=== PATIENT | male | born 1935 | race Caucasian/White ===

== ENCOUNTER 2017-02-04 17:54 | Observation (INO) | payer OTHER, MEDICARE ==
[~2017-02-04] VITALS: Ht 175.3 cm; Wt 91.0 kg
[2017-02-04] VITALS (7 sets, daily range): BP systolic 142–176; BP diastolic 75–89; PULSE 50–54; RESP 16–20; TEMP 98–98.6; O2SAT 95–98
[~2017-02-04 17:54] MED LIST: ASPI1TAB69 PO; CO Q10CA PO; FENO160T PO; HYDR-3533 PO; MEDR4PAK PO; OMEP20TA PO; OXYB5TAB PO; OXYB5TAB10 PO; VALS1TAB64 PO; ZOFR4TAB3 SL
[2017-02-04] MEDS ORDERED: ASPI81CH CHEW (18:08)
[2017-02-04] MEDS ORDERED: ASPIRIN 81 MG CHEW TAB PO ONE (18:30)
[2017-02-04] MEDS ORDERED: SODIUM CHLORIDE 0.9% FLUSH 10 ML FLUSH IVF PRN (18:30)
--- NOTE | 2017-02-04 18:39 | PD ---
HPI Chief Complaint: Chest Pain Time Seen by Provider: 18:16 Travel History International Travel<30 days: No Contact w/Intl Traveler<30days: No Traveled to known affect area: No History of Present Illness HPI 81-year-old male with history of hypertension, hypercholesterolemia, diabetes, here for evaluation of chest pain and abdominal distention. Symptoms started today. He has been having intermittent substernal chest pressure throughout the day today. There are no modifying factors to this pressure. Currently he does not have chest pressure. He also feels as though his abdomen has been distended throughout the day today. No real abdominal pain. History of cholecystectomy and splenectomy. No known history of cardiac disease. There is family history of cardiac disease in his mother and father. He is a nonsmoker. No paresthesias or motor deficits. No hemoptysis. No history of DVT or PE. No dyspnea. Recently had upper respiratory symptoms this past month , was started on antibiotic without improvement. Was thought to have allergies , however allergy testing showed a negative. He does have a pulmonary nodule and is being followed with a cherry sorter for this. No nausea or vomiting. No fevers or chills. He took an 81 mg aspirin today. PFSH Past Medical History Hx Anticoagulant Therapy: Yes (ASA 81mg) High Cholesterol: Yes Diabetes: No Diminished Hearing: No GERD: Yes Hypertension: Yes Immunizations Current: Yes Past Surgical History Cholecystectomy: Yes Other Surgery: Yes (SPLENECTOMY 1968) Social History Alcohol Use: Yes ([facility]) Tobacco Use: No Substance Use: No Allergies-Medications (Allergen,Severity, Reaction): Coded Allergies: ibuprofen (Unverified Allergy, Mild, 02/04/17) Reported Meds & Prescriptions Reported Meds & Active Scripts Active Reported Aspirin 81 Mg Chew 81 Mg CHEW DAILY Co Q 10 (Coenzyme Q10 (Ubidecarenone)) 10 Mg Cap 1 PO BID Oxybutynin ER 24 HR (Oxybutynin Chloride) 5 Mg Tab 5 Mg PO DAILY Fenofibrate 160 Mg Tab 160 Mg PO DAILY Valsartan 80 Mg Tab 80 Mg PO BID Review of Systems Except as stated in HPI: all other systems reviewed are Neg Physical Exam Narrative GENERAL: Well-developed, well-nourished, comfortable, no apparent distress. SKIN: Focused skin assessment warm/dry. HEAD: Atraumatic. Normocephalic. EYES: Pupils equal and round. No scleral icterus. No injection or drainage. ENT: Mucous membranes pink and moist. NECK: Trachea midline. No JVD. CARDIOVASCULAR: Regular rate and rhythm. Distal pulses brisk and equal bilaterally. RESPIRATORY: No accessory muscle use. Clear to auscultation. Breath sounds equal bilaterally. GASTROINTESTINAL: Abdomen soft, non-tender, mildly distended. Normal bowel sounds. MUSCULOSKELETAL: No obvious deformities. No clubbing. No cyanosis. No edema. NEUROLOGICAL: Awake and alert. No obvious cranial nerve deficits. Motor grossly within normal limits. Normal speech. PSYCHIATRIC: Appropriate mood and affect; insight and judgment normal. Data Data Last Documented VS Vital Signs Date Time Temp Pulse Resp B/P (MAP) Pulse Ox O2 Delivery O2 Flow Rate FiO2 02/04/17 20:48 51 18 152/75 (100) 95 Room Air 02/04/17 19:15 98.6 Orders Orders Ckmb (Isoenzyme) Profile (02/04/17 18:25) Complete Blood Count With Diff (02/04/17 18:25) Comprehensive Metabolic Panel (02/04/17 18:25) Magnesium (Mg) (02/04/17 18:25) Prothrombin Time / Inr (Pt) (02/04/17 18:25) Act Partial Throm Time (Ptt) (02/04/17 18:25) Troponin I (02/04/17 18:25) Chest, Single Ap (02/04/17 18:25) Ecg Monitoring (02/04/17 18:25) Iv Access Insert/Monitor (02/04/17 18:25) Oximetry (02/04/17 18:25) Aspirin Chew (Aspirin Chew) (02/04/17 18:30) Sodium Chloride 0.9% Flush (Ns Flush) (02/04/17 18:30) Ct Abd/Pel W Iv Contrast(Rout) (02/04/17 ) Lipase (02/04/17 18:25) Nitroglycerin Sl (Nitrostat Sl) (02/04/17 19:15) Iohexol 350 Inj (Omnipaque 350 Inj) (02/04/17 19:45) Electrocardiogram (02/04/17 18:07) Electrocardiogram (02/04/17 19:27) Admit Order (Ed Use Only) (02/04/17 21:14) Activity Bed Rest With Brp (02/04/17 21:14) Vital Signs (Adult) Q4H (02/04/17 21:14) Cardiac Rhythm .As Directed (02/04/17 21:14) Notify Dr: Other .PRN (02/04/17 21:14) Notify DrCris Parameters (02/04/17 21:14) Resp Oxygen Nasal Cannula (02/04/17 ) Ckmb (Isoenzyme) Profile (02/04/17 21:14) Ckmb (Isoenzyme) Profile (02/05/17 00:14) Troponin I (02/04/17 21:14) Troponin I (02/05/17 00:14) Electrocardiogram (02/04/17 21:14) Electrocardiogram (02/05/17 00:14) ^ Obtain (02/04/17 21:14) Sodium Chloride 0.9% Flush (Ns Flush) (02/04/17 21:15) Rotary Cutter Feeder / Telemetry [id number].Q8H (02/04/17 21:14) Labs Laboratory Tests Test 02/04/17 18:30 White Blood Count 8.9 TH/MM3 Red Blood Count 4.97 MIL/MM3 Hemoglobin 15.6 GM/DL Hematocrit 46.0 % Mean Corpuscular Volume 92.5 FL Mean Corpuscular Hemoglobin 31.3 PG Mean Corpuscular Hemoglobin Concent 33.8 % Red Cell Distribution Width 13.6 % Platelet Count 349 TH/MM3 Mean Platelet Volume 8.8 FL Neutrophils (%) (Auto) 45.0 % Lymphocytes (%) (Auto) 33.7 % Monocytes (%) (Auto) 16.2 % Eosinophils (%) (Auto) 3.6 % Basophils (%) (Auto) 1.5 % Neutrophils # (Auto) 4.1 TH/MM3 Lymphocytes # (Auto) 3.0 TH/MM3 Monocytes # (Auto) 1.4 TH/MM3 Eosinophils # (Auto) 0.3 TH/MM3 Basophils # (Auto) 0.1 TH/MM3 CBC Comment DIFF FINAL Differential Comment Prothrombin Time 11.0 SEC Prothromb Time International Ratio 1.0 RATIO Activated Partial Thromboplast Time 25.0 SEC Blood Urea Nitrogen 19 MG/DL Creatinine 1.60 MG/DL Random Glucose 100 MG/DL Total Protein 7.7 GM/DL Albumin 3.6 GM/DL Calcium Level 8.9 MG/DL Magnesium Level 2.0 MG/DL Alkaline Phosphatase 55 U/L Aspartate Amino Transf (AST/SGOT) 21 U/L Alanine Aminotransferase (ALT/SGPT) 24 U/L Total Bilirubin 0.4 MG/DL Sodium Level 142 MEQ/L Potassium Level 3.9 MEQ/L Chloride Level 107 MEQ/L Carbon Dioxide Level 25.9 MEQ/L Anion Gap 9 MEQ/L Estimat Glomerular Filtration Rate 42 ML/MIN Total Creatine Kinase 91 U/L Troponin I 0.06 NG/ML Lipase 92 U/L MDM Medical Decision Making Medical Screen Exam Complete: Yes Emergency Medical Condition: Yes Interpretation(s) EKG: Sinus, rate 52, leftward axis, normal intervals, no acute ischemic abnormality. Differential Diagnosis ACS, pneumothorax, pericarditis, PE, pneumonia, pancreatitis, hepatobiliary disease, gastritis, peptic ulcer disease, bowel obstruction Narrative Course Initial vital signs show heart rate 52, blood pressure 176/81, pulse ox 97% on room air, oral temp 98F. CBC is unremarkable. CMP is remarkable for BUN 19, creatinine 1.6, GFR 42, otherwise unremarkable. Lipase is 92. Troponin is 0.06. Chest x-ray: CONCLUSION: 1. Cardiomegaly. 2. No acute focal pulmonary infiltrate or pulmonary vascular congestion. CT abdomen pelvis: CONCLUSION: 1. Infrarenal abdominal aortic aneurysm measuring 2.9 cm Transverse x 2.6 cm AP with eccentric mural thrombus. 2. Small hiatal hernia. 3. Fatty liver. 4. Multiple bilateral renal cysts. 5. Uncomplicated colonic diverticulosis. 6. Mildly enlarged prostate. 7. Multiple non-calcified nodules within the visualized lower lobes measuring 7 mm each on the right and 8 mm on the left. Outpatient CT of the chest would be helpful for further characterization of these indeterminate nodules. 8. Scattered interstitial fibrosis of the visualized lung bases. 9. Mild degenerative changes involving the thoracolumbar spine. The patient has not had any chest pain while in the emergency department. The patient and the patient's family were made aware of all findings and provided a copy of the CT abdomen pelvis report. He has several risk factors for cardiac disease. He will be admitted for further cardiac evaluation. Case discussed with hospitalist Dr. Benitez who will admit the patient to her service to the chest pain center. After admitting the patient he tells me that he has been seen by switch foreman Dr. Sherman in the past. Diagnosis Primary Impression: Chest pain Qualified Codes: R07.9 - Chest pain, unspecified Additional Impressions: AAA (abdominal aortic aneurysm) Qualified Codes: I71.4 - Abdominal aortic aneurysm, without rupture Pulmonary nodules Renal cyst Admitting Information Admitting Physician Requests: Jake Pagan MD Feb 04, 2017 18:39
[2017-02-04 18:46] LABS: AUTOMATED NEUTROPHIL # 4.1 TH/MM3 (1.8-7.7); BASOPHIL # 0.1 TH/MM3 (0-0.2); BASOPHIL % 1.5 % (0.0-2.0); EOSINOPHIL # 0.3 TH/MM3 (0-0.4); EOSINOPHIL % 3.6 % (0.0-4.0); HEMO FLAGS DIFF FINAL; LYMPH % 33.7 % (9.0-44.0); MEAN CELL VOLUME 92.5 FL (80.0-100.0); MEAN CORPUSCULAR HEMOGLOBIN 31.3 PG (27.0-34.0); MEAN CORPUSCULAR HGB CONC 33.8 % (32.0-36.0); MONO % 16.2 % (0.0-8.0); PLATELET COUNT 349 TH/MM3 (150-450); RED BLOOD COUNT 4.97 MIL/MM3 (4.50-5.90); RED CELL DISTRIBUTION WIDTH 13.6 % (11.6-17.2); WHITE BLOOD COUNT 8.9 TH/MM3 (4.0-11.0)
[2017-02-04 18:55] LABS: CHLORIDE 107 MEQ/L (98-107); POTASSIUM 3.9 MEQ/L (3.5-5.1); SODIUM (NA) 142 MEQ/L (136-145)
[2017-02-04 18:59] LABS: ANION GAP 9 MEQ/L (5-15); BICARBONATE 25.9 MEQ/L (21.0-32.0); BLOOD UREA NITROGEN 19 MG/DL (7-18)
[2017-02-04 19:02] LABS: ALT (GPT) 24 U/L (12-78); AST (GOT) 21 U/L (15-37); GLOMERULAR FILTRATION RATE 42 ML/MIN (>89)
[2017-02-04 19:03] LABS: TOTAL BILIRUBIN ADULT 0.4 MG/DL (0.2-1.0)
[2017-02-04 19:05] LABS: ALKALINE PHOSPHATASE 55 U/L (45-117)
[2017-02-04 19:08] LABS: CREATINE KINASE 91 U/L (39-308)
[2017-02-04] MEDS: NITROGLYCERIN 0.4 MG SL 25 TABS/BTL SL SCH ×3 (19:19→19:25)
--- NOTE | 2017-02-04 19:28 | RADRPT ---
EXAM DATE/TIME: 02/04/2017 19:00 [facility] COMPARISON: No previous studies available for comparison. INDICATIONS : Chest pain today MEDICAL HISTORY : None. SURGICAL HISTORY : None. ENCOUNTER: Initial ACUITY: 1 day PAIN SCORE: 4/10 LOCATION: Bilateral chest FINDINGS: The heart is enlarged. The pulmonary vascular pattern is normal. The lungs are clear. CONCLUSION: 1. Cardiomegaly. 2. No acute focal pulmonary infiltrate or pulmonary vascular congestion. Bravo Thompson MD on February 04, 2017 at 19:22 Board Certified Radiologist. This report was verified electronically.
[2017-02-04] MEDS ORDERED: IOHEXOL 350 MG/ML 10 ML VIAL (for RAD DIAG) IVCONTRAST ONE (19:45)
--- NOTE | 2017-02-04 20:35 | RADRPT ---
EXAM DATE/TIME: 02/04/2017 19:45 [facility] COMPARISON: No previous studies available for comparison. INDICATIONS : Chest pressure with abdominal distention. IV CONTRAST: 75 cc Omnipaque 350 (iohexol) IV ORAL CONTRAST: No oral contrast ingested. RADIATION DOSE: 18.69 CTDIvol (mGy) MEDICAL HISTORY : Hypertension. Hypercholesterolemia. Gastroesophageal reflux disease. Anticoagulant therapy. SURGICAL HISTORY : Cholecystectomy. Splenectomy. ENCOUNTER: Initial ACUITY: 1 day PAIN SCALE: 4/10 LOCATION: Abdomen TECHNIQUE: Volumetric scanning of the abdomen and pelvis was performed. Using automated exposure control and ad justment of the mA and/or kV according to patient size, radiation dose was kept as low as reasonably achievable to obtain optimal diagnostic quality images. DICOM format image data is available electro nically for review and comparison. FINDINGS: There are two 7 mm noncalcified nodules within the right lower lobe and one 8 mm noncalcified nodule within the left lower lobe. These are indeterminate. Outpatient CT of the chest would be helpful fo r further characterization of these findings. Scattered interstitial fibrosis is noted within the vi sualized lung bases. There is fatty infiltration of the liver. No focal hepatic mass is noted. No biliary ductal dilatation is noted. The gallbladder has been resected. The patient is status-post s plenectomy. The pancreas is normal. The adrenal glands are normal bilaterally. There are multiple cysts within both kidneys with the largest arising from the lower pole of the left kidney measuring 3 .4 cm. No hydronephrosis or solid renal mass is noted on either side. No calcified renal stone is n oted. Uncomplicated colonic diverticulosis is noted. There is no acute diverticulitis. No bowel ob struction is noted. There is an infrarenal abdominal aortic aneurysm measuring 2.9 cm transverse x 2 .6 cm AP with eccentric mural thrombus. The inferior vena cava is normal. There is no paraaortic he morrhage. No mesenteric lymphadenopathy. No ascites is noted. The urinary bladder is unremarkable. The prostate gland is prominent in size. Degenerative changes are noted throughout the thorac olumbar spine. A small hiatal hernia is noted. CONCLUSION: 1. Infrarenal abdominal aortic aneurysm measuring 2.9 cm Transverse x 2.6 cm AP with eccentric mural thrombus. 2. Small hiatal hernia. 3. Fatty liver. 4. Multiple bilateral renal cysts. 5. Uncomplicated colonic diverticulosis. 6. Mildly enlarged prostate. 7. Multiple non-calcified nodules within the visualized lower lobes measuring 7 mm each on the right and 8 mm on the left. Outpatient CT of the chest would be helpful for further characterization of th jyothi indeterminate nodules. 8. Scattered interstitial fibrosis of the visualized lung bases. 9. Mild degenerative changes involving the thoracolumbar spine. Bravo Thompson MD on February 04, 2017 at 20:03 Board Certified Radiologist. This report was verified electronically.
[2017-02-04] MEDS ORDERED: SODIUM CHLORIDE 0.9% FLUSH 10 ML FLUSH IV FLUSH PRN (21:15)
[2017-02-04] MEDS ORDERED: REGADENOSON INJ 0.4 MG/5 ML SYR IV ONE (21:17)
[2017-02-05] VITALS (12 sets, daily range): BP systolic 139–150; BP diastolic 70–89; PULSE 51–60; RESP 18–19; TEMP 97.2–97.9; O2SAT 94–98
[2017-02-05] MEDS ORDERED: LACTULOSE SYRUP 20 GM/30 ML CUP PO PRN (08:15)
[2017-02-05] MEDS ORDERED: BISACODYL 10 MG SUPP RECTAL PRN (08:15)
[2017-02-05] MEDS ORDERED: NALOXONE HCL 0.4 MG/ML AMP IV PRN (08:15)
[2017-02-05] MEDS ORDERED: ACETAMINOPHEN/HYDROcodone 325 MG/5 MG TAB PO PRN (08:15)
[2017-02-05] MEDS ORDERED: ACETAMINOPHEN 325 MG TAB PO PRN ×2 (08:15)
[2017-02-05] MEDS ORDERED: SENNOSIDES 8.6 MG TAB PO PRN (08:15)
[2017-02-05] MEDS ORDERED: MORPHINE SULFATE 4 MG/ML INJ IV PRN (08:15)
[2017-02-05] MEDS ORDERED: ONDANSETRON HCL 4 MG/2 ML VIAL IVP PRN (08:15)
[2017-02-05] MEDS ORDERED: ACETAMINOPHEN/HYDROcodone 325 MG/7.5 MG TAB PO PRN (08:15)
[2017-02-05] MEDS ORDERED: hydrALAZINE HCL 20 MG/ML VIAL IV PRN (09:00)
[2017-02-05] MEDS ORDERED: cloNIDine HCL 0.1 MG TAB PO PRN (09:00)
--- NOTE | 2017-02-05 09:09 | HHI.HP ---
HPI Service [facility] Primary Care Physician Dusty Almanza MD Admission Diagnosis chest pain Diagnoses: Chief Complaint: Chest pressure Travel History International Travel<30 Days: No Contact w/Intl Traveler <30 Da: No Traveled to Known Affected Are: No History of Present Illness This is a 81-year-old male with a history of overactive bladder, hypertension, hyperlipidemia, chronic kidney disease stage 3 crea 1.27 and GERD. He presents to the emergency room because of chest pressure. He had it all day yesterday intermittently lasting from 5 to10 minutes described as nonexertional retrosternal pressure scale of 5/10 without radiation and not associated with nausea, vomiting, dizziness, palpitations and shortness of breath. He felt it was indigestion for which he takes Zantac 150 mg twice a day. He just didn't feel well. Denies leg pain, swelling, history of she DVT, PE and CAD. Systolic blood pressure was 189 and took valsartan prior to arrival. He also received Pepto-Bismol. Also noted abdominal distention denies abdominal pain, constipation, diarrhea and UTI symptoms. At this time, he has no complaints. He ruled out for NM. He requests that I contact his social sciences department chair Dr. Chapin. He remembers having unremarkable stress test at least 5 years ago. Recently had EGD and colonoscopy and several polyps were removed. Also states he will be seeing Dr. Dial regarding pulmonary nodule. All other systems reviewed negative Review of Systems Except as stated in HPI: all other systems reviewed are Neg Past Family Social History Past Medical History As previously mentioned Past Surgical History As previously mentioned. Cholecystectomy and splenectomy Reported Medications Zantac 150 mg twice a day Aspirin 81 Mg Chew 81 Mg CHEW DAILY Co Q 10 (Coenzyme Q10 (Ubidecarenone)) 10 Mg Cap 1 PO BID Oxybutynin ER 24 HR (Oxybutynin Chloride) 5 Mg Tab 5 Mg PO DAILY Fenofibrate 160 Mg Tab 160 Mg PO DAILY Valsartan 80 Mg Tab 80 Mg PO BID Allergies: Coded Allergies: ibuprofen (Unverified Allergy, Mild, 02/04/17) Family History Coronary artery disease Social History He occasional drinks. Quit tobacco 55 years ago [id number] history Physical Exam Vital Signs Vital Signs Date Time Temp Pulse Resp B/P (MAP) Pulse Ox O2 Delivery O2 Flow Rate FiO2 02/05/17 08:09 97.9 52 19 139/77 (97) 97 02/05/17 08:07 96 21 02/05/17 04:00 97.8 55 18 141/70 (93) 96 02/05/17 00:15 96 21 02/04/17 22:19 50 20 142/85 (104) 96 02/04/17 20:48 51 18 152/75 (100) 95 Room Air 02/04/17 19:25 159/82 (107) 02/04/17 19:15 98.6 52 18 146/89 (108) 97 Room Air 02/04/17 18:32 54 20 156/83 (107) 97 02/04/17 18:26 98 02/04/17 17:58 98.0 52 16 176/81 (112) 97 Physical Exam GENERAL: This is a well-nourished, well-developed patient, in no apparent distress. SKIN: No rashes, ecchymoses or lesions. Cool and dry. HEAD: Atraumatic. Normocephalic. No temporal or scalp tenderness. EYES: Pupils equal round and reactive. Extraocular motions intact. No scleral icterus. No injection or drainage. ENT: Nose without bleeding, purulent drainage or septal hematoma. Throat without erythema, tonsillar hypertrophy or exudate. Uvula midline. Airway patent. NECK: Trachea midline. No JVD or lymphadenopathy. Supple, nontender, no meningeal signs. CARDIOVASCULAR: Regular rate and rhythm without gallops, or rubs. Soft systolic murmur aortic area RESPIRATORY: Clear to auscultation. Breath sounds equal bilaterally. No wheezes , rales, or rhonchi. No chest wall tenderness GASTROINTESTINAL: Abdomen soft, non-tender, nondistended. No guarding. MUSCULOSKELETAL: Extremities without clubbing, cyanosis, or edema. No joint tenderness, effusion, or edema noted. No calf tenderness. Negative Homans sign bilaterally. NEUROLOGICAL: Awake and alert. Cranial nerves II through XII intact. Motor and sensory grossly within normal limits. Five out of 5 muscle strength in all muscle groups. Normal speech. Laboratory Laboratory Tests Test 8/27/17 18:30 02/04/17 21:45 02/05/17 00:20 White Blood Count 8.9 Red Blood Count 4.97 Hemoglobin 15.6 Hematocrit 46.0 Mean Corpuscular Volume 92.5 Mean Corpuscular Hemoglobin 31.3 Mean Corpuscular Hemoglobin Concent 33.8 Red Cell Distribution Width 13.6 Platelet Count 349 Mean Platelet Volume 8.8 Neutrophils (%) (Auto) 45.0 Lymphocytes (%) (Auto) 33.7 Monocytes (%) (Auto) 16.2 Eosinophils (%) (Auto) 3.6 Basophils (%) (Auto) 1.5 Neutrophils # (Auto) 4.1 Lymphocytes # (Auto) 3.0 Monocytes # (Auto) 1.4 Eosinophils # (Auto) 0.3 Basophils # (Auto) 0.1 CBC Comment DIFF FINAL Differential Comment Prothrombin Time 11.0 Prothromb Time International Ratio 1.0 Activated Partial Thromboplast Time 25.0 Blood Urea Nitrogen 19 Creatinine 1.60 Random Glucose 100 Total Protein 7.7 Albumin 3.6 Calcium Level 8.9 Magnesium Level 2.0 Alkaline Phosphatase 55 Aspartate Amino Transf (AST/SGOT) 21 Alanine Aminotransferase (ALT/SGPT) 24 Total Bilirubin 0.4 Sodium Level 142 Potassium Level 3.9 Chloride Level 107 Carbon Dioxide Level 25.9 Anion Gap 9 Estimat Glomerular Filtration Rate 42 Total Creatine Kinase 91 94 76 Troponin I 0.06 0.06 0.06 Lipase 92 Result Diagram: 02/04/17 1830 02/04/17 1830 Imaging EKG tracing reviewed by me with sinus bradycardia Chest x-ray image reviewed by me with no acute cardiopulmonary disease Last Impressions Chest X-Ray 02/04/17 1825 Signed Impressions: Service Date/Time: Saturday, February 04, 2017 19:00 - CONCLUSION: 1. Cardiomegaly. 2. No acute focal pulmonary infiltrate or pulmonary vascular congestion. Bravo Thompson MD Abdomen/Pelvis CT 02/04/17 0000 Signed Impressions: Service Date/Time: Saturday, February 04, 2017 19:45 - CONCLUSION: 1. Infrarenal abdominal aortic aneurysm measuring 2.9 cm Transverse x 2.6 cm AP with eccentric mural thrombus. 2. Small hiatal hernia. 3. Fatty liver. 4. Multiple bilateral renal cysts. 5. Uncomplicated colonic diverticulosis. 6. Mildly enlarged prostate. 7. Multiple non-calcified nodules within the visualized lower lobes measuring 7 mm each on the right and 8 mm on the left. Outpatient CT of the chest would be helpful for further characterization of these indeterminate nodules. 8. Scattered interstitial fibrosis of the visualized lung bases. 9. Mild degenerative changes involving the thoracolumbar spine. MD Cornel Buchanan VTE Risk Assessment Caprini VTE Risk Assessment: Mod/High Risk (score >= 2) Caprini Risk Assessment Model Point Value = 1 Point Value = 2 Point Value = 3 Point Value = 5 Age 41-60 Minor surgery BMI > 25 kg/m2 Swollen legs Varicose veins or History of unexplained or recurrent spontaneous Oral contraceptives or hormone replacement Sepsis (< 1 month) Serious lung disease, including pneumonia (< 1 month) Abnormal pulmonary function Acute myocardial infarction Congestive heart failure (< 1 month) History of inflammatory bowel disease Medical patient at bed rest Age 61-74 Arthroscopic surgery Major open surgery (> 45 min) Laparoscopic surgery (> 45 min) Malignancy Confined to bed (> 72 hours) Immobilizing plaster cast Central venous access Age >= 75 History of VTE Family history of VTE Factor V Leiden Prothrombin [id number] Lupus anticoagulant Anticardiolipin antibodies Elevated serum homocysteine Heparin-induced thrombocytopenia Other congenital or acquired thrombophilia Stroke (< 1 month) Elective arthroplasty Hip, pelvis, or leg fracture Acute spinal cord injury (< 1 month) Prophylaxis Regimen Total Risk Factor Score Risk Level Prophylaxis Regimen 0-1 Low Early ambulation 2 Moderate Order ONE of the following: *Sequential Compression Device (SCD) *Heparin 5000 units SQ BID 3-4 Higher Order ONE of the following medications: *Heparin 5000 units SQ TID *Enoxaparin/Lovenox 40 mg SQ daily (WT < 150 kg, CrCl > 30 mL/min) *Enoxaparin/Lovenox 30 mg SQ daily (WT < 150 kg, CrCl > 10-29 mL/min) *Enoxaparin/Lovenox 30 mg SQ BID (WT < 150 kg, CrCl > 30 mL/min) AND/OR *Sequential Compression Device (SCD) 5 or more Highest Order ONE of the following medications: *Heparin 5000 units SQ TID (Preferred with Epidurals) *Enoxaparin/Lovenox 40 mg SQ daily (WT < 150 kg, CrCl > 30 mL/min) *Enoxaparin/Lovenox 30 mg SQ daily (WT < 150 kg, CrCl > 10-29 mL/min) *Enoxaparin/Lovenox 30 mg SQ BID (WT < 150 kg, CrCl > 30 mL/min) AND *Sequential Compression Device (SCD) Assessment and Plan Problem List: (1) Chest pain ICD Code: R07.9 - Chest pain, unspecified Status: Acute (2) AAA (abdominal aortic aneurysm) ICD Code: I71.4 - Abdominal aortic aneurysm, without rupture Status: Chronic (3) Pulmonary nodules ICD Code: R91.8 - Other nonspecific abnormal finding of lung field Status: Chronic Assessment and Plan This is a 81-year-old male with a history of overactive bladder, hypertension, hyperlipidemia, chronic kidney disease stage not known(states it is mild) and GERD. He presents to the emergency room because of chest pressure. He had it all day yesterday intermittently lasting from 5 to10 minutes described as nonexertional retrosternal pressure scale of 5/10 without radiation and not associated with nausea, vomiting, dizziness, palpitations and shortness of breath. Chest pain. Flat trop 0.06. CK WNL. EKG w/o ST changes. Has risk factors for CAD. He needs stress test but patient wants me to discuss his case with his social sciences department chair. Continue aspirin and TriCor. Unable to start beta joshua secondary to baseline bradycardia. He felt it was indigestion for which he takes Zantac 150 mg twice a day. Recently had EGD and colonoscopy and several polyps were removed. Acute on chronic kidney disease stage III. Avoid nephrotoxins. Hold valsartan for now. Start IV hydration. Repeat BMP and magnesium in the morning. Infrarenal abdominal aortic aneurysm measuring 2.9 cm Transverse x 2.6 cm AP with eccentric mural thrombus. Denies abdominal pain. Discussed with patient' s PCP, consult vascular surgery Incidental findings of small hiatal hernia (history of GERD), fatty liver, multiple bilateral renal cysts, uncomplicated colonic diverticulosis, mildly enlarged prostate, multiple non-calcified nodules within the visualized lower lobes measuring 7 mm each on the right and 8 mm on the left, scattered interstitial fibrosis of the visualized lung bases and mild degenerative changes involving the thoracolumbar spine. DVT prophylaxis with SCD and subcutaneous heparin Discussed Condition With Patient, , nursing staff and PCP Problem Qualifiers (1) Chest pain: Qualified Codes: R07.9 - Chest pain, unspecified (2) AAA (abdominal aortic aneurysm): Qualified Codes: I71.4 - Abdominal aortic aneurysm, without rupture Didier Mendoza MD Feb 05, 2017 09:09
[2017-02-05] MEDS: RANITIDINE HCL SYRUP 150 MG/10 ML UDC PO SCH ×2 (09:30→20:30)
[2017-02-05] MEDS: TOLTERODINE TARTRATE 4 MG CAP LA PO SCH (09:30)
[2017-02-05] MEDS: SODIUM CHLOR 0.9% 1000 ML INJ 1,000 ML IV SCH ×2 (09:30→20:30)
[2017-02-05] MEDS: FENOFIBRATE 145 MG TAB PO SCH (09:31)
[2017-02-05] MEDS: DOCUSATE SODIUM 50 MG/SENNA 8.6 MG TAB PO SCH ×2 (09:32→20:30)
[2017-02-05] MEDS: HEPARIN SODIUM - SQ 10,000 UNITS/ML VIAL SQ SCH ×2 (09:32→16:39)
[2017-02-05] MEDS: ASPIRIN 81 MG CHEW TAB CHEW SCH (09:32)
--- NOTE | 2017-02-05 11:18 | PD.VS.PN ---
Subjective Subjective/Hospital Course Infrarenal Abdominal Aortic Aneurysm noted on recent CT (02/04/17). (2.6 cm) (Clarita Cross) Objective Vitals/I&O Date Time Temp Pulse Resp B/P (MAP) Pulse Ox O2 Delivery O2 Flow Rate FiO2 02/05/17 08:09 97.9 52 19 139/77 (97) 97 02/05/17 08:07 96 21 02/05/17 04:00 97.8 55 18 141/70 (93) 96 02/05/17 00:15 96 21 02/04/17 22:19 50 20 142/85 (104) 96 02/04/17 20:48 51 18 152/75 (100) 95 Room Air 02/04/17 19:25 159/82 (107) 02/04/17 19:15 98.6 52 18 146/89 (108) 97 Room Air 02/04/17 18:32 54 20 156/83 (107) 97 02/04/17 18:26 98 02/04/17 17:58 98.0 52 16 176/81 (112) 97 02/05/17 02/05/17 02/05/17 07:00 15:00 23:00 Intake Total 0 ml Balance 0 ml (Clarita Cross) Laboratory Laboratory Tests Test 02/04/17 18:30 02/04/17 21:45 02/05/17 00:20 White Blood Count 8.9 Red Blood Count 4.97 Hemoglobin 15.6 Hematocrit 46.0 Mean Corpuscular Volume 92.5 Mean Corpuscular Hemoglobin 31.3 Mean Corpuscular Hemoglobin Concent 33.8 Red Cell Distribution Width 13.6 Platelet Count 349 Mean Platelet Volume 8.8 Neutrophils (%) (Auto) 45.0 Lymphocytes (%) (Auto) 33.7 Monocytes (%) (Auto) 16.2 Eosinophils (%) (Auto) 3.6 Basophils (%) (Auto) 1.5 Neutrophils # (Auto) 4.1 Lymphocytes # (Auto) 3.0 Monocytes # (Auto) 1.4 Eosinophils # (Auto) 0.3 Basophils # (Auto) 0.1 CBC Comment DIFF FINAL Differential Comment Prothrombin Time 11.0 Prothromb Time International Ratio 1.0 Activated Partial Thromboplast Time 25.0 Blood Urea Nitrogen 19 Creatinine 1.60 Random Glucose 100 Total Protein 7.7 Albumin 3.6 Calcium Level 8.9 Magnesium Level 2.0 Alkaline Phosphatase 55 Aspartate Amino Transf (AST/SGOT) 21 Alanine Aminotransferase (ALT/SGPT) 24 Total Bilirubin 0.4 Sodium Level 142 Potassium Level 3.9 Chloride Level 107 Carbon Dioxide Level 25.9 Anion Gap 9 Estimat Glomerular Filtration Rate 42 Total Creatine Kinase 91 94 76 Troponin I 0.06 0.06 0.06 Lipase 92 Imaging Last 48 hours Impressions Chest X-Ray 02/04/17 1825 Signed Impressions: Service Date/Time: Saturday, February 04, 2017 19:00 - CONCLUSION: 1. Cardiomegaly. 2. No acute focal pulmonary infiltrate or pulmonary vascular congestion. Bravo Thompson MD Abdomen/Pelvis CT 02/04/17 0000 Signed Impressions: Service Date/Time: Saturday, February 04, 2017 19:45 - CONCLUSION: 1. Infrarenal abdominal aortic aneurysm measuring 2.9 cm Transverse x 2.6 cm AP with eccentric mural thrombus. 2. Small hiatal hernia. 3. Fatty liver. 4. Multiple bilateral renal cysts. 5. Uncomplicated colonic diverticulosis. 6. Mildly enlarged prostate. 7. Multiple non-calcified nodules within the visualized lower lobes measuring 7 mm each on the right and 8 mm on the left. Outpatient CT of the chest would be helpful for further characterization of these indeterminate nodules. 8. Scattered interstitial fibrosis of the visualized lung bases. 9. Mild degenerative changes involving the thoracolumbar spine. Bravo Thompson MD (Clarita Cross) Assessment and Plan Assessment: (1) Aneurysm of infrarenal abdominal aorta (2) Renal cyst Status: Acute (3) Chest pain Status: Acute (4) Pulmonary nodules Status: Chronic Plan Plan Reviewed CT w/ Dr. Kaur Pt not a surgical candidate at this time Will obtain an out patient surveillance CT in Will arrange out patient f/u Discussed case and plan w/ Dr. Kelly ROBLES [facility] [phone] Discharge Planning OP F/U arranged (Clarita Cross) Plan CT reviewed - likely small EMANUEL but needs close radiographic f/u. Will arrange as outpatient in our clinic. (Bravo Kaur MD) Problem Qualifiers (1) Chest pain: Qualified Codes: R07.9 - Chest pain, unspecified Clarita Cross Feb 05, 2017 11:18 Bravo Kaur MD Feb 05, 2017 16:38
[2017-02-05] MEDS ORDERED: REGADENOSON INJ 0.4 MG/5 ML SYR IV ONE (12:10)
[2017-02-05 14:17] LABS: GLUCOSE,URINE NEG (NEG); KETONE, URINE NEG (NEG); NITRITE,URINE NEG (NEG); PH, URINE 6.5 (5.0-8.5)
[2017-02-05 14:22] LABS: BLOOD, URINE TRACE (NEG)
[2017-02-05 14:24] LABS: COMMENT (UR) CULT NOT INDICATED; CULTURE IF INDICATED CULT NOT INDICATED; METHOD OF COLLECTION CLEAN CATCH; URINE COLOR STRAW (YELLW/STRAW); WBC, URINE 0-2 /hpf (0-5)
--- NOTE | 2017-02-05 14:26 | RADRPT ---
EXAM DATE/TIME: 02/05/2017 12:23 [place] COMPARISON: No previous studies available for comparison. INDICATIONS : Retrosternal chest pain for 1 day. Cardiomegaly. Angina. DOSE: 25.8 mCi Tc99m Myoview at stress. 8.1 mCi Tc99m Myoview at rest. 0.4 mg Lexiscan STRESS SYMPTOMS: Headache. EJECTION FRACTION: > 70% MEDICAL HISTORY : Hypertension. Renal disease, end stage. SURGICAL HISTORY : Splenectomy. Cholecystectomy. ENCOUNTER: Initial ACUITY: 1 day PAIN SCALE: 5/10 LOCATION: Retrosternal chest TECHNIQUE: The patient underwent pharmacologic stress with infusion of prescribed dose. Continuous ECG tracing was monitored during stress. Gated SPECT imaging was performed after stress and conventional SPECT i maging was performed at rest. The examination was performed on a SPECT/CT scanner, both attenuation and non-corrected datasets were reviewed. FINDINGS: Moderate gut activity does obscure the inferior wall. The best perfused myocardium at stress in the septum followed by the anterior lateral wall. There is minimal redistribution in the anterior septal region involving small segment of mid ventricu lar wall. The ejection fraction is 70% with normal wall motion across this segment. CONCLUSION: Possible mild induced stress ischemia as described above with normal wall motion. RISK CATEGORY: Low (<1% Annual Mortality Rate) Danish Qiu MD FACR on February 05, 2017 at 14:23 Board Certified Radiologist. This report was verified electronically.
--- NOTE | 2017-02-05 15:28 | HHI.DCPOC ---
Discharge Care Plan Diagnosis: (1) Chest pain Your Health Problems Are: Difficulty with ADL Exercise Tolerance Goals to Promote Your Health * To prevent worsening of your condition and complications * To maintain your health at the optimal level Directions to Meet Your Goals Take your medications as prescribed Follow your dietary instruction Follow activity as directed Keep your appointments as scheduled Take your immunizations and boosters as scheduled If your symptoms worsen call your PCP, if no PCP go to Urgent Care Center or Emergency Room Smoking is Dangerous to Your Health. Avoid second hand smoke Call the 24-hour hour crisis hotline for domestic abuse at Didier Mendoza MD Feb 05, 2017 15:28
[2017-02-05] MEDS ORDERED: VALSARTAN 80 MG TAB PO ONE (22:00)
[2017-02-05] MEDS ORDERED: ATORVASTATIN 10 MG TAB PO SCH (22:00)
[2017-02-06] VITALS: BP 164/93; PULSE 53; RESP 18; TEMP 98.1; O2SAT 100
[2017-02-06] MEDS: HEPARIN SODIUM - SQ 10,000 UNITS/ML VIAL SQ SCH ×2 (00:43→08:44)
[2017-02-06 04:00] VITALS: BP 130/74; PULSE 54; RESP 16; TEMP 97.9; O2SAT 97
[2017-02-06 06:28] LABS: POTASSIUM 3.9 MEQ/L (3.5-5.1)
[2017-02-06 06:36] LABS: BICARBONATE 23.9 MEQ/L (21.0-32.0)
[2017-02-06 08:00] VITALS: BP 156/99; PULSE 54; RESP 20; TEMP 97.2; O2SAT 98
[2017-02-06] MEDS: ASPIRIN 81 MG CHEW TAB CHEW SCH (08:39)
[2017-02-06] MEDS: FENOFIBRATE 145 MG TAB PO SCH (08:39)
[2017-02-06] MEDS: DOCUSATE SODIUM 50 MG/SENNA 8.6 MG TAB PO SCH (08:39)
[2017-02-06] MEDS: RANITIDINE HCL SYRUP 150 MG/10 ML UDC PO SCH (08:40)
[2017-02-06] MEDS: TOLTERODINE TARTRATE 4 MG CAP LA PO SCH (08:44)
[2017-02-06] MEDS ORDERED: VALSARTAN 80 MG TAB PO SCH (09:00)
--- NOTE | 2017-02-06 09:02 | MB ---
cc: MAREK MINA M.D., WAFIK F. M.D. DATE OF CONSULTATION 02/05/2017 REASON FOR CONSULTATION Chest discomfort. Mildly abnormal myocardial perfusion stress study. HISTORY OF PRESENT ILLNESS Mr. Gloria is a pleasant 81-year-old gentleman known to me with history of neurocardiogenic syncope, history of hypertension, hyperlipidemia, history of mitral valve prolapse and moderate mitral regurgitation. He came in late Sunday after he was "not feeling well". His abdomen was perhaps slightly distended and had chest pressure that was on and off for many hours. This was not associated with any diaphoresis, nausea, vomiting or palpitations or radiation. It was nonexertional. He does not get chest pressure with exertion. He denies angina, palpitations, dizziness or syncope. Denies orthopnea, PND or leg swellings. Denies claudications. ALLERGIES HE HAS ADVERSE REACTION TO MOTRIN. FAMILY HISTORY Positive for coronary artery disease. Negative for cancer. Positive for hypertension. Negative for diabetes. PAST MEDICAL AND SURGICAL HISTORY 1. As mentioned above. 2. History of obstructive sleep apnea, cannot tolerate C-PAP therapy. 3. Diverticulitis. 4. Colon polyps, recent polypectomy by Dr. Moeller. 5. Peripheral neuropathy. 6. Splenectomy in 1967. 7. Cholecystectomy in 1987. SOCIAL HISTORY He used to smoke but stopped in 1961. He has a nine pack-year history of smoking. Denies EtOH abuse or recreational drug use. REVIEW OF SYSTEMS A 12-point system review is unremarkable except what is mentioned in the History of Present Illness. MEDICATIONS AT HOME 1. Aleve 220 mg p.r.n. for pain. 2. Aspirin 81 mEq daily. 3. Crestor 5 mg p.o. q.h.s. 4. Metoprolol tartrate 12.5 mg p.o. b.i.d. 5. Omeprazole 40 p.o. daily. 6. Oxybutynin 5 mg p.o. daily. 7. Pepto Bismol p.r.n. 8. Valsartan 80 mg p.o. b.i.d. 9. Zantac 75 mg p.o. daily p.r.n. "reflux ". PHYSICAL EXAMINATION GENERAL: An 81-year-old gentleman lying in bed in no apparent distress, alert and oriented x 3, answering questions appropriately. VITAL SIGNS: Blood pressure is 141/88 mmHg, pulse of 51 beats per minute and regular, respirations 40/minute, afebrile. HEENT: Head is normocephalic. Pupils equal and active. Throat is within normal limits. NECK: Supple. No carotid bruit. No thyromegaly. No jugular venous distension noted. LUNG EXAM: Clear to auscultation. CARDIOVASCULAR EXAM: S1 and S2 are normal with a faint S4 gallop. 2-3/6 pansystolic murmur across the precordium, more prominent at the apex with radiation to the axilla consistent with mitral regurgitation. ABDOMINAL EXAM: Lax, nontender. Normoactive bowel sounds. No organomegaly, no masses felt. EXTREMITIES: No clubbing, cyanosis or edema. Pulses 2+ bilaterally and no bruit noted. NEUROLOGIC: Grossly intact with no focal deficits. RECTAL: Exam deferred. EKG Sinus bradycardia with nonspecific inferior ST changes and not significantly ST change compared to prior tracing. Troponin x 3 at 0.06. CPK x 3 is normal. LABORATORY DATA Sodium 142, potassium 3.9, BUN of 19, creatinine 1.6 which is not far from his baseline. Amylase and lipase were within normal limits. Coags were normal. CBC was also within normal limits. IMAGING STUDIES He had an abdominal and pelvic CT which shows an infrarenal "abdominal aortic aneurysm" at 2.9 cm diameter with an "eccentric mural thrombus". Small hiatal hernia, fatty liver, bilateral renal cysts, diverticulosis, enlarged prostate and interstitial lung fibrosis. That is per the report. The chest x-ray shows no acute findings. He had a pharmacological myocardial perfusion study and reported as possible stress-induced ischemia in the septal region. Films were reviewed and I do not see that ischemia. Wall motion is normal. Ejection fraction of 71%. ASSESSMENT AND RECOMMENDATIONS 1. Atypical chest discomfort with reportedly mildly abnormal myocardial perfusion study. Images were reviewed and I do not appreciate such ischemia. He is currently pain free. His Valsartan dose will be increased to 1-1/2 of the 80 mg pills that he takes twice daily and I will follow up on his clinical response. The elevated BP could be very well likely due to progression of his obstructive sleep apnea. He was advised weight loss and advised to get back with his sleep apnea doctor for further evaluation. 2. Regarding the chest discomfort, it has resolved and it was there with elevated blood pressure which can cause myocardial strain and can sometimes precipitate chest discomfort. He is to ambulate and if he is feeling fine by tomorrow morning he can be discharged as long as he does not have any further symptoms. 3. Hyperlipidemia, controlled. Continue with Crestor. 4. Hypertension as above. Further recommendations will follow depending on his clinical response and progress. I thank you for the consultation. ADDENDUM After reviewing the records I found that his valsartan was held and that will be restarted. It is unlikely that the valsartan is the sole cause of his renal insufficiency. He has been taking it for years and if there is significant renal artery stenosis then his kidney function would be a lot worse. His kidney parameters right now have been the same for at least one or two years. I agree with IV fluids. He needs to go back on the valsartan at this point, especially with the finding of an abdominal aortic aneurysm on the CT. Regarding the size of this aneurysm there is no need for anything to be done at this point except controlling his blood pressure and his heart rate (already bradycardic). He is also to continue on baby aspirin 81 mg daily. He is to resume the generic Crestor as he has not been taking it. Thank you for the consultation. MD JENI Kenney/BHARTI /9:09 PM /9:48 AM
[2017-02-06] MEDS ORDERED: VALSARTAN 80 MG TAB PO ONE (09:45)
--- NOTE | 2017-02-06 09:58 | TR ---
Date Performed: 02/05/2017 Time Performed: 12:46:42 DOCTOR: Alondra Ladd DRUG LIST: CLINICAL HISTORY: REASON FOR TEST: REASON FOR ENDING: OBSERVATION: CONCLUSION: Lexiscan stress test was performed under standard four minute protocol. Radionuclid e was injected one minute prior to ending the test. No electrocardiographic abormalities were present to suggest ischemia. Nuclear imaging and interpretation are pending. COMMENTS:
--- NOTE | 2017-02-06 10:00 | EKG ---
Date Performed: 02/04/2017 Time Performed: 18:07:23 PTAGE: 81 years EKG: SINUS BRADYCARDIA BORDERLINE ECG Since previous tracing, no significant change noted NO PREVIOUS TRACING DOCTOR: Alondra Ladd Interpretating Date/Time 02/06/2017 10:00:10
--- NOTE | 2017-02-06 10:01 | EKG ---
Date Performed: 02/04/2017 Time Performed: 19:27:54 PTAGE: 81 years EKG: SINUS BRADYCARDIA BORDERLINE ECG Since PREVIOUS TRACING , no significant change noted DOCTOR: Alondra Ladd Interpretating Date/Time 02/06/2017 10:00:58
--- NOTE | 2017-02-06 10:03 | EKG ---
Date Performed: 02/05/2017 Time Performed: 00:23:22 PTAGE: 81 years EKG: SINUS BRADYCARDIA BORDERLINE ECG Since PREVIOUS TRACING , no significant change noted PREVIOUS TRACIN02/04/2017 21.29 DOCTOR: Alondra Ladd Interpretating Date/Time 02/06/2017 10:02:29
--- NOTE | 2017-02-06 10:03 | EKG ---
Date Performed: 02/04/2017 Time Performed: 21:29:42 PTAGE: 81 years EKG: SINUS BRADYCARDIA BORDERLINE ECG Since PREVIOUS TRACING , no significant change noted PREVIOUS TRACIN02/04/2017 19.27 DOCTOR: Alondra Ladd Interpretating Date/Time 02/06/2017 10:02:15
[2017-02-06] MEDS: SODIUM CHLOR 0.9% 1000 ML INJ 1,000 ML IV SCH (10:14)
[2017-02-06] MEDS ORDERED: DIOV160T6 PO (10:23)
--- NOTE | 2017-02-06 12:01 | HHI.PR ---
Subjective Remarks Follow-up chest pain. He is doing okay ambulating hallway without chest pain. Results of stress test discussed with patient. Cardiology recommended medical management. Patient to resume Crestor which he has not been compliant. Discussed with RN Objective Vitals Vital Signs Date Time Temp Pulse Resp B/P (MAP) Pulse Ox O2 Delivery O2 Flow Rate FiO2 02/06/17 08:00 98 21 02/06/17 08:00 54 02/06/17 08:00 97.2 54 20 156/99 (118) 98 02/06/17 04:00 97.9 54 16 130/74 (92) 97 02/06/17 00:00 98.1 53 18 164/93 (116) 100 02/05/17 21:47 96 21 02/05/17 20:00 97.2 56 18 150/79 (102) 98 02/05/17 20:00 56 02/05/17 17:54 97.5 53 19 143/83 (103) 97 02/05/17 15:19 18 02/05/17 15:00 60 02/05/17 13:39 94 21 02/05/17 13:38 98 21 02/05/17 12:51 97.7 51 19 141/89 (106) 97 I/O 02/05/17 02/05/17 02/05/17 02/06/17 02/06/17 02/06/17 07:00 15:00 23:00 07:00 15:00 23:00 Intake Total 0 ml 974 ml 640 ml Output Total 900 ml 900 ml Balance 0 ml 74 ml 640 ml -900 ml Intake Oral 0 ml 480 ml IV Total 494 ml 640 ml Output Urine Total 900 ml 900 ml # Voids 2 # Bowel Movements 0 Result Diagram: 02/04/17 1830 02/06/17 0510 Imaging Last Impressions Myocardial Perfusion Scan Nuc Med 02/05/17 1003 Signed Impressions: Service Date/Time: Sunday, February 05, 2017 12:23 - CONCLUSION: Possible mild induced stress ischemia as described above with normal wall motion. RISK CATEGORY: Low (<1%% Annual Mortality Rate) Danish Qiu MD FACR Chest X-Ray 02/04/17 1824 Signed Impressions: Service Date/Time: Saturday, February 04, 2017 19:00 - CONCLUSION: 1. Cardiomegaly. 2. No acute focal pulmonary infiltrate or pulmonary vascular congestion. Bravo Thompson MD Abdomen/Pelvis CT 02/04/17 0000 Signed Impressions: Service Date/Time: Saturday, February 04, 2017 19:45 - CONCLUSION: 1. Infrarenal abdominal aortic aneurysm measuring 2.9 cm Transverse x 2.6 cm AP with eccentric mural thrombus. 2. Small hiatal hernia. 3. Fatty liver. 4. Multiple bilateral renal cysts. 5. Uncomplicated colonic diverticulosis. 6. Mildly enlarged prostate. 7. Multiple non-calcified nodules within the visualized lower lobes measuring 7 mm each on the right and 8 mm on the left. Outpatient CT of the chest would be helpful for further characterization of these indeterminate nodules. 8. Scattered interstitial fibrosis of the visualized lung bases. 9. Mild degenerative changes involving the thoracolumbar spine. Bravo Thompson MD Objective Remarks Well-developed, well-nourished in no distress on room air Clear to auscultation equal in expansion Systolic murmur, regular rate and rhythm Alert and oriented nonfocal Procedures None A/P Problem List: (1) Chest pain ICD Code: R07.9 - Chest pain, unspecified Status: Acute (2) AAA (abdominal aortic aneurysm) ICD Code: I71.4 - Abdominal aortic aneurysm, without rupture Status: Chronic (3) Pulmonary nodules ICD Code: R91.8 - Other nonspecific abnormal finding of lung field Status: Chronic Assessment and Plan This is a 81-year-old male with a history of overactive bladder, hypertension, hyperlipidemia, chronic kidney disease stage not known(states it is mild) and GERD. He presents to the emergency room because of chest pressure. He had it all day yesterday intermittently lasting from 5 to10 minutes described as nonexertional retrosternal pressure scale of 5/10 without radiation and not associated with nausea, vomiting, dizziness, palpitations and shortness of breath. Chest pain. Flat trop 0.06. CK WNL. EKG w/o ST changes. Has risk factors for CAD. Lexiscan with possible mild ischemia. Cardiology recommended medical management. Continue aspirin and TriCor. Unable to start beta joshua secondary to baseline bradycardia. Patient to resume Crestor he has been noncompliant. He has been pain-free even with exertion and is stable for discharge Acute on chronic kidney disease stage III. Stable status post hydration. Avoid nephrotoxins. Repeat BMP and magnesium in one week Hypertension with suboptimal control. Valsartan dose increased. Patient also to follow-up with pulmonary regarding sleep apnea Infrarenal abdominal aortic aneurysm measuring 2.9 cm Transverse x 2.6 cm AP with eccentric mural thrombus. Denies abdominal pain. Discussed with patient' s PCP and vascular surgery, surveillance CT in 1 month Incidental findings of small hiatal hernia (history of GERD), fatty liver, multiple bilateral renal cysts, uncomplicated colonic diverticulosis, mildly enlarged prostate, multiple non-calcified nodules within the visualized lower lobes measuring 7 mm each on the right and 8 mm on the left, scattered interstitial fibrosis of the visualized lung bases and mild degenerative changes involving the thoracolumbar spine. DVT prophylaxis with SCD and subcutaneous heparin Discharge Planning Discharge patient to home Condition on discharge: Improved Regular Diet as tolerated Ad [place] activity no driving Rx written: Valsartan Follow-up with primary care physician, cardiology, pulmonary and vascular surgery Problem Qualifiers (1) Chest pain: Qualified Codes: R07.9 - Chest pain, unspecified (2) AAA (abdominal aortic aneurysm): Qualified Codes: I71.4 - Abdominal aortic aneurysm, without rupture Didier Mendoza MD Feb 06, 2017 12:01
[2017-02-06] MEDS ORDERED: VALSARTAN 160 MG TAB PO SCH (21:00)
== END 2017-02-06 11:38 | disposition home or self-care (01) ==
LOC: PHED 17:54 → PHEDA 21:16 → PH3A 21:57
PROVIDERS: ADMIT Internal Medicine; ATTEND Internal Medicine
DX: R07.9 Chest pain, unspecified (principal); R91.1 Solitary pulmonary nodule; I71.4 Abdominal aortic aneurysm, without rupture; R94.31 Abnormal electrocardiogram [ECG] [EKG]; I13.0 Hypertensive heart and chronic kidney disease with heart failure and stage 1 through stage 4 chronic kidney disease, or unspecified chronic kidney disease; E11.22 Type 2 diabetes mellitus with diabetic chronic kidney disease; N32.81 Overactive bladder; E78.5 Hyperlipidemia, unspecified; K21.9 Gastro-esophageal reflux disease without esophagitis; Z91.19 Patient's noncompliance with other medical treatment and regimen
CPT/HCPCS: 71010; 74177; 78452; 80048; 80053; 81001; 82550; 83690; 83735; 84484; 85025; 85610; 85730; 93005; 93017; 96360; 96361; 96372; 99285; A9502; G0378; J1644; J2785; J7030; Q9967